=== PATIENT | male | born 1985 | race Caucasian/White ===

== ENCOUNTER 2016-08-20 19:21 | Emergency (ER) | payer OTHER ==
[~2016-08-20] VITALS: Ht 175.3 cm; Wt 76.0 kg
[2016-08-20 19:37] VITALS: BP 134/77; PULSE 89; RESP 16; TEMP 98.3; O2SAT 98
--- NOTE | 2016-08-20 19:48 | PD ---
HPI Chief Complaint: Psychiatric Symptoms Time Seen by Provider: 19:42 Travel History International Travel<30 days: No Contact w/Intl Traveler<30days: No Traveled to known affect area: No History of Present Illness HPI Patient is a 31-year-old male brought to the ER by police officers under a Baldwin act. As per police officers, patient hitchhiked from [facility] today to "leave behind problems at home." Patient reports that he is addicted to drugs as well as alcohol, reports that he had thoughts of being [place] by [place] [employer] [place]. Patient reports that he abuses IV dilaudid - last use with 530am today. PFSH Past Medical History Asthma: Yes Depression: Yes Tetanus Vaccination: Unknown Influenza Vaccination: No Past Surgical History Appendectomy: Yes Social History Alcohol Use: Yes (OCCASIONALLY) Tobacco Use: Yes Substance Use: Yes (IV DILAUDID) Allergies-Medications (Allergen,Severity, Reaction): Coded Allergies: No Known Allergies (Unverified , 08/20/16) Reported Meds & Prescriptions Reported Meds & Active Scripts Active No Active Prescriptions or Reported Medications Review of Systems Psychiatric: Positive: Depression, Suicidal Ideations, Substance Abuse Physical Exam Narrative GENERAL: NAD, Nontoxic SKIN: Warm and dry. HEAD: Atraumatic. Normocephalic. EYES: Pupils equal and round. No scleral icterus. No injection or drainage. ENT: No nasal bleeding or discharge. Mucous membranes pink and moist. NECK: Trachea midline. No JVD. CARDIOVASCULAR: Regular rate and rhythm. No murmur appreciated. RESPIRATORY: No accessory muscle use. Clear to auscultation. Breath sounds equal bilaterally. GASTROINTESTINAL: Abdomen soft, non-tender, nondistended. Hepatic and splenic margins not palpable. MUSCULOSKELETAL: No obvious deformities. No clubbing. No cyanosis. No edema. NEUROLOGICAL: Awake and alert. No obvious cranial nerve deficits. Motor grossly within normal limits. Normal speech. PSYCHIATRIC: suicidal idealations Data Data Last Documented VS Vital Signs Date Time Temp Pulse Resp B/P Pulse Ox O2 Delivery O2 Flow Rate FiO2 08/20/16 19:39 89 16 08/20/16 19:37 98.3 134/77 98 Orders Complete Blood Count With Diff (08/20/16 19:42) Comprehensive Metabolic Panel (08/20/16 19:42) Psych Screen (08/20/16 19:42) Drug Screen, Random Urine (08/20/16 19:42) Alcohol (Ethanol) (08/20/16 19:30) Labs Laboratory Tests Test 08/20/16 19:30 White Blood Count 8.5 TH/MM3 Red Blood Count 4.69 MIL/MM3 Hemoglobin 13.4 GM/DL Hematocrit 38.8 % Mean Corpuscular Volume 82.6 FL Mean Corpuscular Hemoglobin 28.5 PG Mean Corpuscular Hemoglobin 34.6 % Concent Red Cell Distribution Width 14.5 % Platelet Count 576 TH/MM3 Mean Platelet Volume 6.6 FL Neutrophils (%) (Auto) 64.7 % Lymphocytes (%) (Auto) 23.8 % Monocytes (%) (Auto) 7.2 % Eosinophils (%) (Auto) 3.2 % Basophils (%) (Auto) 1.1 % Neutrophils # (Auto) 5.5 TH/MM3 Lymphocytes # (Auto) 2.0 TH/MM3 Monocytes # (Auto) 0.6 TH/MM3 Eosinophils # (Auto) 0.3 TH/MM3 Basophils # (Auto) 0.1 TH/MM3 CBC Comment DIFF FINAL Differential Comment Sodium Level 139 MEQ/L Potassium Level 3.7 MEQ/L Chloride Level 103 MEQ/L Carbon Dioxide Level 26.5 MEQ/L Anion Gap 10 MEQ/L Blood Urea Nitrogen 14 MG/DL Creatinine 1.01 MG/DL Estimat Glomerular Filtration 85 ML/MIN Rate Random Glucose 100 MG/DL Calcium Level 8.9 MG/DL Total Bilirubin 0.4 MG/DL Aspartate Amino Transf 15 U/L (AST/SGOT) Alanine Aminotransferase 24 U/L (ALT/SGPT) Alkaline Phosphatase 97 U/L Total Protein 8.1 GM/DL Albumin 3.9 GM/DL Ethyl Alcohol Level LESS THAN 3 MG/DL [facility] Medical Decision Making Medical Screen Exam Complete: Yes Emergency Medical Condition: Yes Interpretation(s) Vital Signs Date Time Temp Pulse Resp B/P Pulse Ox O2 Delivery O2 Flow Rate FiO2 08/20/16 19:39 89 16 08/20/16 19:37 98.3 89 16 134/77 98 Differential Diagnosis Alcohol intoxication, suicidal evaluation, drug overdose Narrative Course Patient is a 31-year-old male who was brought to emergency room by police under Baldwin act. Patient reports that he is addicted to drugs as well as alcohol, works that he had planned sick with suicide today by jumping off the bridge. Patient presents to emergency room for help with his addiction. Screening labs ordered for patient. Once medically cleared, will have patient seen by psych screeners. Diagnosis Primary Impression: Depression Qualified Code: F32.9 - Depression, unspecified depression type Additional Impression: Drug abuse and dependence Patient Instructions: General Instructions Additional Instructions: Please follow-up with your primary care doctor as soon as possible Please follow-up with [facility] as soon as possible Return to the emergency room as needed Stop using drugs Stop drinking alcohol excessively Scripts No Active Prescriptions or Reported Meds May Michelle DO Aug 20, 2016 19:48
[2016-08-20 19:55] LABS: AUTOMATED NEUTROPHIL # 5.5 TH/MM3 (1.8-7.7); BASOPHIL # 0.1 TH/MM3 (0-0.2); BASOPHIL % 1.1 % (0.0-2.0); EOSINOPHIL # 0.3 TH/MM3 (0-0.4); EOSINOPHIL % 3.2 % (0.0-4.0); HEMATOCRIT 38.8 % (39.0-51.0); HEMO FLAGS DIFF FINAL; LYMPH % 23.8 % (9.0-44.0); MEAN CELL VOLUME 82.6 FL (80.0-100.0); MEAN CORPUSCULAR HEMOGLOBIN 28.5 PG (27.0-34.0); MEAN CORPUSCULAR HGB CONC 34.6 % (32.0-36.0); MONO % 7.2 % (0.0-8.0); NEUT % 64.7 % (16.0-70.0); PLATELET COUNT 576 TH/MM3 (150-450); RED BLOOD COUNT 4.69 MIL/MM3 (4.50-5.90); RED CELL DISTRIBUTION WIDTH 14.5 % (11.6-17.2); WHITE BLOOD COUNT 8.5 TH/MM3 (4.0-11.0)
[2016-08-20 20:12] LABS: ANION GAP 10 MEQ/L (5-15); AST (GOT) 15 U/L (15-37); BICARBONATE 26.5 MEQ/L (21.0-32.0); BLOOD UREA NITROGEN 14 MG/DL (7-18); CHLORIDE 103 MEQ/L (98-107); GLOMERULAR FILTRATION RATE 85 ML/MIN (>89); POTASSIUM 3.7 MEQ/L (3.5-5.1); SODIUM (NA) 139 MEQ/L (136-145)
[2016-08-20 20:15] LABS: ALKALINE PHOSPHATASE 97 U/L (45-117); ALT (GPT) 24 U/L (12-78); TOTAL BILIRUBIN ADULT 0.4 MG/DL (0.2-1.0)
[2016-08-20] MEDS ORDERED: ERYTOIN10 LEFT EYE (21:45)
--- NOTE | 2016-08-20 21:48 | PD ---
Physical Exam Date Seen by Provider: Aug 20, 2016 Time Seen by Provider: 21:46 Narrative 31-year-old male that presents to the ED for Baldwin act. I was asked by nurse to evaluate patient for irritation to the left eye. Patient has been seen by Dr. Caraballo please refer to her note. Patient had already been medically clear. I do not see any notes from evaluation of the sclerae went to see the patient. On my examination patient appears to have 4 mm pupils that are reactive to light and accommodation. EOM intact bilaterally. Peripheral vision intact bilaterally. Fluorescein stain revealed no sign of infection or abrasion or ulceration. Patient does have an Intal irritation of the left eye. Patient has a lot of tearing. From history and physical this appears to be conjunctivitis. Data Data Last Documented VS Vital Signs Date Time Temp Pulse Resp B/P Pulse Ox O2 Delivery O2 Flow Rate FiO2 08/20/16 19:39 89 16 08/20/16 19:37 98.3 134/77 98 Orders Complete Blood Count With Diff (08/20/16 19:42) Comprehensive Metabolic Panel (08/20/16 19:42) Psych Screen (08/20/16 19:42) Drug Screen, Random Urine (08/20/16 19:42) Alcohol (Ethanol) (08/20/16 19:30) Labs Laboratory Tests Test 08/20/16 19:30 White Blood Count 8.5 TH/MM3 Red Blood Count 4.69 MIL/MM3 Hemoglobin 13.4 GM/DL Hematocrit 38.8 % Mean Corpuscular Volume 82.6 FL Mean Corpuscular Hemoglobin 28.5 PG Mean Corpuscular Hemoglobin 34.6 % Concent Red Cell Distribution Width 14.5 % Platelet Count 576 TH/MM3 Mean Platelet Volume 6.6 FL Neutrophils (%) (Auto) 64.7 % Lymphocytes (%) (Auto) 23.8 % Monocytes (%) (Auto) 7.2 % Eosinophils (%) (Auto) 3.2 % Basophils (%) (Auto) 1.1 % Neutrophils # (Auto) 5.5 TH/MM3 Lymphocytes # (Auto) 2.0 TH/MM3 Monocytes # (Auto) 0.6 TH/MM3 Eosinophils # (Auto) 0.3 TH/MM3 Basophils # (Auto) 0.1 TH/MM3 CBC Comment DIFF FINAL Differential Comment Sodium Level 139 MEQ/L Potassium Level 3.7 MEQ/L Chloride Level 103 MEQ/L Carbon Dioxide Level 26.5 MEQ/L Anion Gap 10 MEQ/L Blood Urea Nitrogen 14 MG/DL Creatinine 1.01 MG/DL Estimat Glomerular Filtration 85 ML/MIN Rate Random Glucose 100 MG/DL Calcium Level 8.9 MG/DL Total Bilirubin 0.4 MG/DL Aspartate Amino Transf 15 U/L (AST/SGOT) Alanine Aminotransferase 24 U/L (ALT/SGPT) Alkaline Phosphatase 97 U/L Total Protein 8.1 GM/DL Albumin 3.9 GM/DL Ethyl Alcohol Level LESS THAN 3 MG/DL [facility] Medical Record Reviewed: Yes Supervised Visit with CARLYLE: No Differential Diagnosis Conjunctivitis versus bacterial conjunctivitis versus foreign body Narrative Course 30-year-old male that presents to the ED for evaluation of Baldwin act. Please refer to previous provider noted. I was asked to evaluate the eye as a produce with was evaluated before. From my evaluation patient appears to have conjunctivitis. Patient likely has viral conjunctivitis but he does have a history of IV drug abuse and will treat with erythromycin him in to cover for acute infection. I do not see any sign of glaucoma or any other disease. Patient had good relief with the proparacaine. I recommended warm compresses. Patient was medically clear once more. Diagnosis Primary Impression: Depression Qualified Code: F32.9 - Depression, unspecified depression type Additional Impressions: Drug abuse and dependence Conjunctivitis Qualified Code: B30.9 - Acute viral conjunctivitis of left eye Patient Instructions: General Instructions Additional Instruction: Please follow-up with your primary care doctor as soon as possible Please follow-up with [facility] as soon as possible Return to the emergency room as needed Stop using drugs Stop drinking alcohol excessively Scripts Erythromycin Opth Oint 5 Mg/Gm Oint1 Applic LEFT EYE BID #1 TUBE Prov:May Michelle DO 08/20/16 Terell Hooper Aug 20, 2016 21:48
[2016-08-21 02:23] VITALS: BP 139/88; PULSE 94; RESP 19; O2SAT 99
[2016-08-21 06:17] VITALS: BP 143/61; PULSE 66; RESP 19; TEMP 98.7; O2SAT 98
[2016-08-21 10:59] VITALS: BP 152/68; PULSE 78; RESP 17; TEMP 98.6; O2SAT 95
[2016-08-21 14:42] VITALS: BP 141/72; PULSE 71; RESP 17; TEMP 97.5; O2SAT 98
--- NOTE | 2016-08-21 17:28 | PD.CONS ---
Provisional Diagnosis Admission Date 08/20/2016 Jeanerette I. 1. Polysubstance dependence Jeanerette II. Deferred Jeanerette V. GAF is 55 History of Present Illness Service Psychiatry Consult Requested By Emergency department Reason for Consult Baldwin act Primary Care Physician No Primary Care Physician HPI Mr. Hernandez is a 31-year-old male with a reported history of substance use disorder who presents under a Baldwin act from [facility] Department alleging that the patient hitchhiked from [place] because of issues with drugs and alcohol. He advised the officer that he was addicted to opiates and alcohol and was tired of living this way. Reviewing the electronic medical record, I see no prior psychiatric contact within our system. Patient seen and examined. Chart reviewed. Case discussed with nurse in the J- pod. There has been no evidence of any suicidality or homicidality in the emergency room. Nurse has been in contact with patient's mother who is filing a [employer] act. Plan had been to have the patient sent for detoxification/drug rehabilitation services but he was apparently not accepted because he has conjunctivitis. On my examination today, the patient is requesting discharge from the psychiatric emergency room. He says that his goal in speaking with the officer was to get in for detoxification services and since this is not forthcoming given the conjunctivitis, he will simply transport himself to the nearest chemical dependency treatment facility and try to get them to admit him directly. He denies any suicidal or homicidal ideation. He is future oriented. I can elicit no depressive or hypomanic/manic symptoms. He denies any audiovisual hallucinations and I can elicit no paranoia, no ideas of reference, no thought insertion or withdrawal, no grandiosity or other delusional material. The remainder of the psychiatric ROS is negative. Past psychiatric history: The patient denies a history of psychiatric diagnosis. He denies a history of outpatient psychiatric treatment. He denies a history of suicide attempts. He reports that he was briefly admitted for an observation stay at [facility] in July. Family history: The patient denies a family history of serious mental illness or suicide. He reports that there are substance use issues on his father's side of the family. Chemical dependency history: Patient admits to recent use of Dilaudid, buprenorphine and cocaine. The beeper nor venous illicitly obtained. He denies any use of benzodiazepines or alcohol. He has been for rehabilitation services in the past. Social history: Patient is from [place]. He had been staying with his grandmother but he says that she kicked him out. He is single. He has 2 children. Denies any or legal history. Denies any history of violent crime. Denies any access to guns or firearms. Review of Systems Other Besides the conjunctivitis, no physical complaints Past Family Social History Coded Allergies: No Known Allergies (Unverified , 08/20/16) Past Medical History See electronic medical record Active Scripts Erythromycin Opth Oint 5 Mg/Gm Oint1 Applic LEFT EYE BID #1 TUBE Prov:May Michelle DO 08/20/16 On no prescription medications outpatient Patient's Strengths (min. 2) Maintaining basic hygiene. Verbally fluent. Physical Exam Physical examination completed by ED provider. For me today, patient is well- nourished and well-developed and in no acute physical distress. Conjunctivitis of the left eye is present with some tearing and erythema. No abnormal motor movements noted. No signs of withdrawal noted at this time. Labs and vital signs reviewed. Vital Signs Vital Signs Date Time Temp Pulse Resp B/P Pulse Ox O2 Delivery O2 Flow Rate FiO2 08/21/16 14:42 97.5 71 17 141/72 98 08/21/16 02:23 Room Air Lab Results Item Value Date Time White Blood Count 8.5 TH/MM3 08/20/161929 Hemoglobin 13.4 GM/DL 08/20/161929 Platelet Count 576 TH/MM3 H 08/20/161929 Sodium Level 139 MEQ/L 08/20/161929 Potassium Level 3.7 MEQ/L 08/20/161929 Chloride Level 103 MEQ/L 08/20/161929 Blood Urea Nitrogen 14 MG/DL 08/20/161929 Creatinine 1.01 MG/DL 08/20/161929 Aspartate Amino Transf (AST/SGOT) 15 U/L 08/20/161929 Alanine Aminotransferase (ALT/SGPT) 24 U/L 08/20/161929 Total Protein 8.1 GM/DL 08/20/161929 Alkaline Phosphatase 97 U/L 08/20/161929 Ethyl Alcohol Level LESS THAN 3 MG/DL 2/19/17 1930 Urine toxicology is not presently available for my review Mental Status Examination [facility] is [facility]. He is fairly well groomed. He has several tattoos. He is maintaining basic hygiene. He is awake alert and oriented 3. No evidence of delirium. No abnormal motor movements noted. Speech is within normal limits for rate, tone and volume. Language and fund of knowledge seemed average. Mood is fair and affect is blunted. Thought process linear. No loosening of associations. No evident delusions. Denies audiovisual hallucinations. Denies suicidal or homicidal ideation. Insight and judgment are fair. Assessment & Plan Problem List: (1) Polysubstance dependence ICD Code: F19.20 Assessment & Plan This is a 31-year-old male with psychiatric history as detailed above who presents under a Baldwin act. Patient denies any suicidal or homicidal ideation to me and is requesting discharge from the emergency department. He says that he had the officer initiated Baldwin act to get drug and alcohol treatment. This is apparently not presently possible because of his conjunctivitis. He says that he will plan to try to obtain these services by alternate means. The patient is substance use disordered and there is no evidence of an unstable mood, anxiety or psychotic disorder or other mental illness as defined under the Baldwin act. Inasmuch is this is the case and he is also denying suicidal or homicidal ideation and is attending to his basic needs [employer] the patient does not meet Baldwin act criteria at this time. I have lifted the Baldwin act. I counseled the patient regarding warning signs for need to return to the psychiatric emergency room as part of the general safety plan. Patient is pursuing chemical dependency services as noted above. Patient is otherwise psychiatrically clear for discharge from the ED. Request HC Surrog/Guard Advoc?: No Benjamín Vazquez MD Aug 21, 2016 17:28
== END 2016-08-21 18:24 | disposition home or self-care (01) ==
LOC: NEPA 19:21 → NEPJ 08-21 18:24
DX: F19.20 Other psychoactive substance dependence, uncomplicated (principal); F32.9 Major depressive disorder, single episode, unspecified; H10.9 Unspecified conjunctivitis; J45.909 Unspecified asthma, uncomplicated; Z72.0 Tobacco use
CPT/HCPCS: 80053; 80320; 85025; 99283